=== PATIENT | male | born 2000 | race Caucasian/White ===

== ENCOUNTER 2019-04-10 16:03 | Emergency (ER) | payer SELFPAY ==
[~2019-04-10] VITALS: Ht 182.9 cm; Wt 108.9 kg
[2019-04-10 16:09] VITALS: BP_SYST 152
--- NOTE | 2019-04-10 16:17 | NUR ---
Patient to ER bed 03 to gown for evaluation. Side rails up.
--- NOTE | 2019-04-10 16:25 | NUR ---
Pt AAOx4 ambulated into ED c/o 12/07 mid back pain since this morning s/p doing yard work. Pt was leaf blowing and felt a pinch in his mid back. When pt removed pack and began raking, the twisting motion caused a sharp pain to his back. Pt took 2 advils and a muscle relaxer with mild relief. Pt denies radiating pain/Denies loss of bladder or bowel function. No deformities noted to site. Will continue to monitor.
--- NOTE | 2019-04-10 17:22 | NUR ---
ER MILAN Valencia examining patient.
[2019-04-10] MEDS ORDERED: KETOROLAC TROMETHAMINE 30 MG VIAL IM ONE (17:30)
[2019-04-10 18:03] VITALS: BP_SYST 142
--- NOTE | 2019-04-10 18:03 | NUR ---
Patient given written and verbal discharge instructions and verbalizes understanding. ER RAMANDEEP Valencia discussed with patient the results and treatment provided. Patient in stable condition. ID arm band removed. Rx of Ibuprofen, Acetaminophen given. Patient educated on pain management and to follow up with PMD. Pain Scale 4. Opportunity for questions provided and answered. Medication side effect fact sheet provided.
== END 2019-04-10 18:01 | disposition home or self-care (01) ==
LOC: SED 16:03
DX: S39.012A Strain of muscle, fascia and tendon of lower back, initial encounter (principal); X50.1XXA Overexertion from prolonged static or awkward postures, initial encounter; Y93.89 Activity, other specified; Y92.89 Other specified places as the place of occurrence of the external cause; Y99.8 Other external cause status
CPT/HCPCS: 81002; 96372; 99283; J1885